=== PATIENT | male | born 1995 | race African-American/Black ===

== ENCOUNTER 2019-02-22 17:36 | Emergency (ER) | payer OTHER ==
[~2019-02-22] VITALS: Ht 175.3 cm; Wt 63.5 kg
[2019-02-22 18:14] LABS: URINE BILIRUBIN NEGATIVE (Negative); URINE BLOOD NEGATIVE (Negative); URINE CLARITY CLEAR; URINE COLOR YELLOW; URINE GLUCOSE-RANDOM* NEGATIVE (Negative); URINE KETONES TRACE (Negative); URINE LEUKOCYTES-REFLEX NEGATIVE (Negative); URINE NITRITE-REFLEX NEGATIVE (Negative); URINE PROTEIN (DIPSTICK) NEGATIVE (Negative); URINE SPECIFIC GRAVITY 1.025 (1.005-1.035); URINE UROBILINOGEN 0.2 E.U./dl (0.2-1.0)
[2019-02-22 19:46] LABS: ABSOLUTE NEUTROPHILS 5.6 thou/uL (1.4-8.2); HEMATOCRIT 44.5 % (42.0-52.0); HEMOGLOBIN 15.2 gm/dL (14.0-18.0); LYMPHOCYTES 31.2 % (24.0-44.0); MCHC 34.2 g/dL (28.0-37.0); MCV 90.5 fL (80.0-100.0); MONOCYTES 7.6 % (1.0-8.0); PLATELET COUNT 234 thou/uL (150-400); POLYS 58.2 % (36.0-66.0); RBC 4.92 mil/uL (4.50-6.00); WBC 9.6 thou/uL (4.0-11.0)
[2019-02-22 19:57] LABS: CALCIUM 9.8 mg/dL (8.5-10.1); CREATININE 0.9 mg/dL (0.7-1.3); POTASSIUM 3.5 mmol/L (3.5-5.1)
[2019-02-22 20:02] LABS: ALBUMIN 4.6 g/dL (3.4-5.0); TOTAL BILIRUBIN 0.6 mg/dL (<0.1-1.0); TOTAL PROTEIN 7.8 g/dL (6.4-8.2)
[2019-02-22] MEDS ORDERED: LEVSIN0.125 MG PO (20:57)
[2019-02-22] MEDS ORDERED: TRAMADOL 50 MG50 MG PO (20:57)
[2019-02-22] MEDS ORDERED: PRILOSEC 20 MG20 MG PO ×2 (20:58→21:00)
[2019-02-22 21:15] VITALS: BP 131/87
== END 2019-02-22 21:15 | disposition home or self-care (01) ==
LOC: ER 17:36
PROVIDERS: Physician Assistant
DX: R10.12 Left upper quadrant pain (principal)